=== PATIENT | male | born 1960 | race Caucasian/White ===

== ENCOUNTER 2018-03-11 08:28 | Emergency (ER) | payer MEDICAID ==
--- NOTE | 2018-03-11 08:56 | Emergency Department Record ---
History of Present Illness - General Chief complaint: Extremity Problem Stated complaint: L WRIST INJURY Time Seen by Provider: 03/11/18 08:43 Source: Patient, RN notes reviewed Mode of Arrival: Ambulatory - History of Present Illness Initial comments: injuried his left wrist pulling his [employer]ian[employer] out from under his deck. happened yesterday Onset/Timin -: Days(s) Location: Left, Arm History of Same: No Severity scale (1-10): 5 Quality: Aching Consistency: Constant Improves with: Immobilization, Rest Worsens with: Exertion Associated Symptoms: Denies other symptoms - Related Data Home Medications Medication Instructions Recorded Confirmed Last Taken Cholecalciferol (Vitamin D3) 2,000 unit PO ASDIR 03/11/18 03/11/18 03/10/18 [Vitamin D3] Duloxetine HCl [Cymbalta] 30 mg PO DAILY 03/11/18 03/11/18 03/10/18 Rosuvastatin Calcium 5 mg PO DAILY 03/11/18 03/11/18 03/10/18 Tadalafil [Cialis] 5 mg PO ASDIR 03/11/18 03/11/18 03/10/18 Allergies Allergy/AdvReac Type Severity Reaction Status Date / Time No Known Drug Allergies Allergy Verified 03/11/18 08:36 Travel Screening - Travel/Exposure Within Last 30 Days Have you traveled within the last 30 days?: No - Travel/Exposure Within Last Year Have you traveled outside the [place] in the last year?: No - Additonal Travel Details Have you been exposed to anyone with a communicable illness?: No - Travel Symptoms Symptom Screening: None Review of Systems Reviewed: No additional complaints except as noted below Constitutional: Reports: As per HPI. Denies: Chills, Fever, Malaise, Night sweats, Weakness, Weight change Eyes: Reports: As per HPI. Denies: Eye discharge, Eye pain, Photophobia, Vision change ENT: Reports: As per HPI. Denies: Congestion, Dental pain, Ear pain, Epistaxis , Hearing loss, Throat pain Respiratory: Reports: As per HPI. Denies: Cough, Dyspnea, Hemoptysis, Stridor, Wheezes Cardiovascular: Reports: As per HPI. Denies: Arrhythmia, Chest pain, Dyspnea on exertion, Edema, Murmurs, Orthopnea, Palpitations, Paroxysmal nocturnal dyspnea, Rheumatic Fever, Syncope Endocrine: Reports: As per HPI. Denies: Fatigue, Heat or cold intolerance, Polydipsia, Polyuria Gastrointestinal: Reports: As per HPI. Denies: Abdominal pain, Constipation, Diarrhea, Hematemesis, Hematochezia, Melena, Nausea, Vomiting Genitourinary: Reports: As per HPI. Denies: Dysuria, Frequency, Hematuria, Incontinence, Retention, Testicular pain, Testicular mass, Urgency Musculoskeletal: Reports: As per HPI, Other (wrist pain left). Denies: Arthralgia, Back pain, Gout, Joint swelling, Myalgia, Neck pain Skin: Reports: As per HPI. Denies: Bruising, Change in color, Change in hair/ nails, Lesions, Pruritus, Rash Neurological: Reports: As per HPI. Denies: Abnormal gait, Confusion, Headache, Numbness, Paresthesias, Seizure, Tingling, Tremors, Vertigo, Weakness Psychiatric: Reports: As per HPI. Denies: Anxiety, Auditory hallucinations, Depression, Homicidal thoughts, Suicidal thoughts, Visual hallucinations Hematological/Lymphatic: Reports: As per HPI. Denies: Anemia, Blood Clots, Easy bleeding, Easy bruising, Swollen glands Past Medical History - SOCIAL HISTORY Smoking Status: Never smoker Alcohol Use: None Drug Use: None - RESPIRATORY Hx Respiratory Disorders: No - CARDIOVASCULAR Hx Cardio Disorders: No - NEURO Hx Neuro Disorders: No - GI Hx GI Disorders: Yes Hx Rectal Bleeding: Yes Comment:: hemorrhoids - Hx Genitourinary Disorders: No - ENDOCRINE Hx Endocrine Disorders: No - MUSCULOSKELETAL Hx Musculoskeletal Disorders: No - PSYCH Hx Psych Problems: Yes Hx Depression: Yes - HEMATOLOGY/ONCOLOGY Hx Hematology/Oncology Disorders: Yes Hx Anemia: Yes Family Medical History Any Significant Family History?: Yes Hx Cancer: Father *Cancer Comment: Father-stomach cancer Physical Exam - General General Appearance: Alert, Oriented x3, Cooperative, No acute distress - Head Head exam: Normal inspection - Eye Eye exam: Normal appearance, PERRL Pupils: Normal accommodation - ENT ENT exam: Normal exam, Mucous membranes moist, Normal external ear exam, Normal orophraynx, TM's normal bilaterally Ear exam: Normal external inspection. negative: External canal tenderness Nasal Exam: Normal inspection. negative: Discharge, Sinus tenderness Mouth exam: Normal external inspection, Tongue normal Teeth exam: Normal inspection. negative: Dental caries Throat exam: Normal inspection. negative: Tonsillar erythema, Tonsillar exudate - Neck Neck exam: Normal inspection, Full ROM. negative: Tenderness - Respiratory Respiratory exam: Normal lung sounds bilaterally. negative: Respiratory distress - Cardiovascular Cardiovascular Exam: Regular rate, Normal rhythm, Normal heart sounds - GI/Abdominal GI/Abdominal exam: Soft, Normal bowel sounds. negative: Tenderness - Rectal Rectal exam: Deferred - exam: Deferred - Extremities Extremities exam: Normal inspection, Full ROM, Normal capillary refill, Tenderness (wrist left pain) - Back Back exam: Reports: Normal inspection, Full ROM. Denies: Muscle spasm, Rash noted, Tenderness - Neurological Neurological exam: Alert, Normal gait, Oriented X3, Reflexes normal - Psychiatric Psychiatric exam: Normal affect, Normal mood - Skin Skin exam: Dry, Intact, Normal color, Warm Course Vital Signs 03/11/18 08:40 Temperature 98.8 F Pulse Rate 66 Respiratory 20 Rate Blood Pressure 134/98 Pulse Ox 97 Medical Decision Making - Data Complexity MDM Data: X-Ray Ordered and/or Reviewed (No fracture per [facility] will read) Disposition Clinical Impression: Left wrist sprain Qualifiers: Encounter type: initial encounter Qualified Code(s): S63.502A - Unspecified sprain of left wrist, initial encounter Disposition: Home, Self-Care Condition: (1) Good Instructions: Wrist Sprain (ED) Additional Instructions: motrin OTC 3 pills every 6 hours Time of Disposition: 09:05 Quality - Quality Measures Quality Measures: N/A - Blood Pressure Screening Does Patient Have Any of the Following: No Blood Pressure Classification: Hypertensive Reading Systolic Measurement: 134 Diastolic Measurement: 98 Screening for High Blood Pressure: < First Hypertensive BP, F/U Documented > [ [id number]] First Hypertensive Follow-up Interventions: Referral to alternative/primary care provider.
--- NOTE | 2018-03-11 22:50 | RADIOLOGY REPORT ---
EXAM: WRIST, LEFT 3 VIEWS HISTORY: POSTERIOR MIDLINE WRIST PAIN FOLLOWING LIFTING INJURY. TECHNIQUE: Left wrist, complete. FINDINGS: There is moderate first CMC degenerative change. There is a dystrophic calcification along the volar aspect of the scaphoid. No clearly acute osseous abnormality. No soft tissue swelling. IMPRESSION: 1. NO CLEARLY ACUTE OSSEOUS ABNORMALITY. 2. THERE IS A NONSPECIFIC CALCIFICATION ALONG THE VOLAR ASPECT OF THE SCAPHOID , PROBABLY CHRONIC THOUGH CORRELATE WITH POINT TENDERNESS. 3. DEGENERATIVE CHANGE. 4. IF PERSISTENT CLINICAL CONCERN, RECOMMEND PATIENT RETURN FOR REPEAT IMAGING IN 5- 7 DAYS. JOB NUMBER: [id number] MTDD
== END 2018-03-11 09:27 | disposition home or self-care (01) ==
LOC: ER 08:28
DX: S63.502A Unspecified sprain of left wrist, initial encounter (principal); X50.0XXA Overexertion from strenuous movement or load, initial encounter
CPT/HCPCS: 99283

== ENCOUNTER 2019-07-29 10:02 | Day surgery (SDC) | payer MEDICAID ==
[~2019-07-29 10:02] MED LIST: ACETAMINOPHEN 1,000 MG/100 ML BTL IVPB ONE; CEFAZOLIN 1 Gram 1 GM/50 ML BAG IVPB ONE; CEFAZOLIN 2 Gram 2 GM/50 ML BAG IVPB ONE
[2019-07-29] MEDS ORDERED: CEFAZOLIN 1 Gram 1 GM/50 ML BAG IVPB ONE (10:03)
[2019-07-29] MEDS ORDERED: PROPOFOL 10 MG/ML VIAL IV ONE (10:03)
[2019-07-29] MEDS ORDERED: *PACU ONLY* KETAMINE HCL 10 MG/ML (20ML) VIAL IV ONE (10:03)
[2019-07-29] MEDS ORDERED: CEFAZOLIN 2 Gram 2 GM/50 ML BAG IVPB ONE (10:03)
[2019-07-29] MEDS ORDERED: MIDAZOLAM HCL 2MG/2ML VIAL IV ONE (10:03)
[2019-07-29] MEDS ORDERED: RINGERS SOLUTION,LACTATED 1,000 ML IV ONE ×3 (10:20→12:58)
[2019-07-29] MEDS ORDERED: BUPIVACAINE 0.25% W/EPI MPF 30ML VIAL SQ ONE (12:50)
--- NOTE | 2019-07-30 12:40 | Operative Note ---
DATE OF SURGERY: 07/29/2019 SURGEON: Howie Villalobos DO PREOPERATIVE DIAGNOSIS: Back abscess. POSTOPERATIVE DIAGNOSIS: Back abscess. OPERATION: I&D of back abscess. INDICATION: The patient is a 59-year-old male who has had long-standing issues with skin infections. He came in with a very large abscess. We did discuss I&D. risks, benefits, and alternatives were discussed. Risks include bleeding, infection, recurrence. He understood this fully. Thereafter, consent was signed and questions answered. PROCEDURE: The patient was taken to the operating room and placed in a supine position. Local with IV sedation was given per the department of anesthesia. The patient was rotated into the left lateral position. His back was prepped and draped in the usual fashion. The area around the abscess was anesthetized with a total of 10 mL of 0.25% Sensorcaine with epinephrine. A #15 scalpel blade was used to drain a large abscess. Aerobic and anaerobic cultures were taken. This was then irrigated and packed with iodoform gauze. The patient was taken to the recovery room in stable condition. LEAH
== END 2019-07-29 13:29 | disposition home or self-care (01) ==
LOC: SUR 10:02
PROVIDERS: ATTEND Surgery
DX: L02.212 Cutaneous abscess of back [any part, except buttock and flank] (principal); E78.5 Hyperlipidemia, unspecified
CPT/HCPCS: 10060; 00300; J0690 ×2; J7120